=== PATIENT | male | born 1975 ===

== ENCOUNTER 2017-09-03 09:01 | Day surgery (SDC) | payer MEDICAID ==
[2017-08-22 09:51] VITALS: BMI 28.3
[~2017-09-03 09:01] MED LIST: Acetaminophen-Codeine 300/30 mg Tab PO PRN; Dextrose 5%/0.45% NS 1,000 ML IV SCH; EPINEPHrine 1:1000 Nasal Sol(30mL) ONE; Lidocaine/Epinephrine 1% 1:100000 10 ML IJ ONE; Oxymetazoline 0.05% Nasal Spray (30 ml) NS ONE; ceFAZolin IV 1 gm in Dextrose 0 GM/0 ML BAG IVPB ONE
== END 2017-09-03 09:25 | disposition home or self-care (01) ==
LOC: C.SDS 09:01
PROVIDERS: ATTEND Otolaryngology
DX: J34.2 Deviated nasal septum (principal); J34.3 Hypertrophy of nasal turbinates; Z53.09 Procedure and treatment not carried out because of other contraindication
CPT/HCPCS: 30520; P000X

== ENCOUNTER 2017-09-03 09:22 | Emergency (ER) | payer MEDICAID ==
[2017-09-03 09:22] VITALS: BMI 28.3
[2017-09-03 09:28] VITALS: BP 150/97; PULSE 74; RESP 17; TEMP 98.6; O2SAT 98
[2017-09-03] MEDS ORDERED: Naproxen 550 mg Tab PO STA (09:38)
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
[2017-09-03] MEDS ORDERED: Naproxen 550 mg Tab PO ONE (09:43)
== END 2017-09-03 09:57 | disposition home or self-care (01) ==
LOC: C.ER 09:22
DX: T22.20XA Burn of second degree of shoulder and upper limb, except wrist and hand, unspecified site, initial encounter (principal); T23.272A Burn of second degree of left wrist, initial encounter; T20.14XA Burn of first degree of nose (septum), initial encounter; T20.10XA Burn of first degree of head, face, and neck, unspecified site, initial encounter; X10.2XXA Contact with fats and cooking oils, initial encounter

== ENCOUNTER 2017-09-10 06:07 | Day surgery (SDC) | payer MEDICAID ==
[2017-09-10] MEDS ORDERED: Lidocaine/Epinephrine 1% 1:100000 10 ML IJ ONE (06:36)
[2017-09-10] MEDS ORDERED: ceFAZolin 1 gm in NS 2 GM/200 ML BAG IVPB ONE (06:36)
[2017-09-10] MEDS ORDERED: EPINEPHrine 1:1000 Nasal Sol(30mL) ONE (06:37)
[2017-09-10] MEDS ORDERED: Lactated Ringer's 1,000 ML IV ONE (07:40)
[2017-09-10] MEDS ORDERED: Succinylcholine Chloride 20 mg/ml Syr (5 ml) IV ONE ×2 (07:44→08:31)
[2017-09-10] MEDS ORDERED: Propofol 10 mg/ml Inj (20 ML) ONE ×2 (07:44→08:11)
[2017-09-10] MEDS ORDERED: Lidocaine Hydrochloride 5 ML INJ ONE (07:45)
[2017-09-10] MEDS ORDERED: Rocuronium 10 mg/ml (5 ml) ONE (07:45)
[2017-09-10] MEDS ORDERED: ePHEDrine 50 mg/ml Inj ONE (08:57)
[2017-09-10] MEDS ORDERED: Acetaminophen-Codeine 300/30 mg Tab PO PRN (09:23)
[2017-09-10] MEDS ORDERED: Dextrose 5%/0.45% NS 1,000 ML IV SCH (09:30)
[2017-09-10] MEDS ORDERED: Lactated Ringer's 1,000 ML IV SCH (09:45)
[2017-09-10] MEDS: HYDROmorphone 0.5 mg/0.5 ml ISec IVP PRN ×2 (10:00→10:35)
[2017-09-10 11:21] VITALS: RESP 18
[2017-09-10 12:21] VITALS: BP 149/100; PULSE 65; TEMP 97.8; O2SAT 99
--- NOTE | 2017-09-10 20:57 | OP ---
Copied To: Archie Yanez MD Attending MD: Archie Yanez MD PROCEDURE DATE: 09/10/2017 PREOPERATIVE DIAGNOSIS: Chronic sinusitis, deviated septum, large turbinates. POSTOPERATIVE DIAGNOSES: Chronic sinusitis, deviated septum, large turbinates. PROCEDURES: Endoscopic bilateral maxillary antrostomy, endoscopic bilateral ethmoidectomy, endoscopic bilateral sphenoidotomy, endoscopic bilateral frontal sinusotomy, endoscopic bilateral inferior turbinate reduction, septoplasty. FINDINGS: Deviated septum, enlarged inferior turbinates, sinusitis changes noted in the ethmoid sinuses, maxillary antrum stenosed on both sides, and sphenoid antrum stenosed on both sides, frontal recess stenosed on both sides. DESCRIPTION OF PROCEDURE: The patient was brought into the room, placed in supine position. Anesthesia was initiated through an ET tube. Navigation was set throughout the case in order to ensure that the skull base and orbit will not be entered. Adrenaline-soaked pledgets were inserted into nasal cavity, remained there for at least 5 minutes and removed. The patient was draped in usual manner. The septum was injected with lidocaine with epinephrine on both sides. Hemitransfixion incision was made on the left and mucoperichondrial flap was raised. A vertical incision was made in the cartilage leaving a 1.5 cm anterior and superior strut and mucoperichondrial flap was raised on the other side. Portion of the bone and cartilage were removed using forceps. A quilting suture was used to suture the two flaps together and close the hemitransfixion incision. 0-degree scope was inserted into the nasal cavity. The inferior turbinates were noted to be enlarged. They were reduced first on the left, on the right using scissors going from an inferior to superior anterior posterior direction on both sides. Bleeding was controlled using suction cautery. Attention was turned to left and the middle turbinate was injected with lidocaine with epinephrine and medialized. The uncinate process was medialized using a [place] elevator and removed using forceps. The ethmoid bulla was entered inferomedially using a debrider going posteriorly to the basal lamella, then anterior and superiorly until the ethmoid bulla was removed. The basal lamella was entered. Posterior ethmoid cells were entered and opened. Skull base was identified and followed anteriorly all the way to the area of the anterior ethmoid air cells. The frontal recess was noted to be stenosed and opened using forceps. Next, the sphenoid antrum was located and was noted to be stenosed and opened using forceps. The maxillary antrum was located and noted to be stenosed and opened using forceps. These were done using navigation to ensure that the skull base and orbit were not entered, and attention was turned to the side. The middle turbinate was injected with lidocaine with epinephrine and medialized. The uncinate process was medialized using a [place] elevator and removed using forceps. The ethmoid bulla was entered inferomedially going posteriorly to the basal lamella and then anterior and superiorly until the ethmoid bulla was removed. The basal lamella was entered. Posterior ethmoid cells were entered and opened. Skull base was identified and followed anteriorly all the way to the area of the anterior ethmoid air cells. The sphenoid recess was noted to be stenosed and opened using forceps. The sphenoid antrum was located, noted to be stenosed and opened using forceps. The maxillary antrum was located and noted to be stenosed and opened using forceps. Bleeding was controlled using adrenaline-soaked pledgets on both sides. Splints were placed. Stents were placed. The patient was taken off anesthesia and taken to recovery room in a stable manner. Archie Yanez MD
== END 2017-09-10 12:10 | disposition home or self-care (01) ==
LOC: C.SDS 06:07
PROVIDERS: ATTEND Otolaryngology
DX: J34.2 Deviated nasal septum (principal); J34.3 Hypertrophy of nasal turbinates; J32.2 Chronic ethmoidal sinusitis; J32.0 Chronic maxillary sinusitis
CPT/HCPCS: 30140; 30520; 31256; 31257; 88304; J0690; J1170; J2704; J3010; J7120